=== PATIENT | female | born 2000 | race Caucasian/White ===

== ENCOUNTER 2020-11-06 13:59 | Emergency (ER) | payer BC, OTHER ==
[2020-11-06 14:06] VITALS: TEMP 98.4
--- NOTE | 2020-11-06 14:36 | ED ---
Lower Extremity Injury HPI - General Chief Complaint: Extremity Injury, Lower Stated Complaint: Fall-Poss R leg broken Time Seen by Provider: 11/06/20 14:07 Source: patient Mode of arrival: wheelchair Limitations: no limitations - History of Present Illness Initial Comments: 20-year-old female presenting to emergency Department with chief complaint of a fall and right foot pain. Patient reports occurred about half hour prior to arrival. Patient states she tripped over a baby gate and had an inversion injury of the right ankle. Patient reports most of the pain is located in the mid foot and some mild pain over the right lateral malleolus. Denies any swelling, erythema or ecchymosis in the region. States the pain is exacerbated with any movement and weightbearing. Reports pain is alleviated at rest. Denies sick medication to alleviate the symptoms. Denies any numbness or tingling. States she is not able to move her toes due to pain. Denies any head injury or blood thinners. - Related Data Home Medications Medication Instructions Recorded Confirmed Dextroamphetamine/Amphetamine 20 mg PO BID 11/06/20 11/06/20 [Adderall] metFORMIN HCL 850 mg PO BID 11/06/20 11/06/20 Allergies Allergy/AdvReac Type Severity Reaction Status Date / Time No Known Allergies Allergy Verified 11/06/20 15:47 Review of Systems ROS Statement: Those systems with pertinent positive or pertinent negative responses have been documented in the HPI. ROS Other: All systems not noted in ROS Statement are negative. Past Medical History Past Medical History: No Reported History Past Surgical History: No Surgical Hx Reported General Exam Limitations: no limitations General appearance: alert, in no apparent distress, obese Head exam: Present: atraumatic, normocephalic, normal inspection Eye exam: Present: normal appearance, PERRL, EOMI Pupils: Present: normal accommodation ENT exam: Present: normal exam, normal oropharynx, mucous membranes moist, TM's normal bilaterally, normal external ear exam Neck exam: Present: normal inspection, full ROM. Absent: tenderness Respiratory exam: Present: normal lung sounds bilaterally. Absent: respiratory distress, wheezes, rales Cardiovascular Exam: Present: regular rate, normal rhythm, normal heart sounds. Absent: systolic murmur, diastolic murmur GI/Abdominal exam: Present: soft. Absent: distended, tenderness, guarding Extremities exam: Present: normal inspection, tenderness (Midfoot and lateral malleolus tenderness.), normal capillary refill, other (Palpable DP and PT bilaterally.). Absent: full ROM ( Limited range of motion with plantar and dorsiflexion due to pain.), pedal edema, joint swelling Back exam: Present: normal inspection, full ROM. Absent: tenderness, CVA tenderness (R), CVA tenderness (L) Neurological exam: Present: alert, oriented X3, normal gait Psychiatric exam: Present: normal affect, normal mood Skin exam: Present: warm, dry, intact, normal color Course Vital Signs 11/06/20 11/06/20 14:02 16:12 Temperature 98.4 F Pulse Rate 102 H 89 Respiratory 18 16 Rate Blood Pressure 143/88 136/79 O2 Sat by Pulse 98 99 Oximetry Medical Decision Making - Medical Decision Making 20-year-old female presenting to the emergency department with a chief complaint of foot pain. On physical examination, patient is neurovascularly intact but she does have limited range of motion with plantar dorsiflexion due to pain. This was an inversion injury. X-ray of the ankle and foot are negative for any acute processes. Patient was given analgesia. On Reevaluation, patient reports improvement in symptoms. Patient was given a postop shoe. Dr. Hlal also examined the patient and is in agreement with the treatment plan. She was advised to follow-up with licensing specialist. Rest, ice, compression and elevation. Return parameters discussed the patient was understanding and agreeable. Disposition Clinical Impression: Sprain of right foot, Right foot injury Disposition: HOME SELF-CARE Condition: Stable Instructions (If sedation given, give patient instructions): Foot Sprain (ED) Additional Instructions: Rest, ice, wear Boyd bandage. Follow-up with licensing specialist if symptoms not improved. Take anti-inflammatory medication for pain control. Is patient prescribed a controlled substance at d/c from ED?: No Referrals: Jennifer Marina III, MD [Primary Care Provider] - 1-2 days Time of Disposition: 16:04
--- NOTE | 2020-11-06 14:49 | XR ---
Right foot and right ankle HISTORY: Trauma and pain 3 views of the right foot and 3 views the right ankle Mild soft tissue swelling is noted. Bone mineralization, joint spaces and alignment are maintained. IMPRESSION: No fracture or dislocation.
[2020-11-06] MEDS ORDERED: ACET/COD 300 MG/30 MG STARTER PACK 6 TAB BTL PO STA (14:56)
[2020-11-06 16:18] VITALS: BP 136/79; PULSE 89; RESP 16
== END 2020-11-06 16:19 | disposition home or self-care (01) ==
LOC: EC 13:59 → SUPCPDRO 13:59 → EC 16:19
DX: S93.601A Unspecified sprain of right foot, initial encounter (principal); Z79.84 Long term (current) use of oral hypoglycemic drugs; Z79.899 Other long term (current) drug therapy; W18.09XA Striking against other object with subsequent fall, initial encounter
CPT/HCPCS: 99283

== ENCOUNTER 2021-06-27 18:41 | Outpatient (CLI) | payer OTHER ==
[2021-06-27 19:26] VITALS: BP 141/72; PULSE 107; RESP 16; TEMP 97.3
--- NOTE | 2021-08-10 13:13 | P.MSEPDOC ---
Presenting Problems - Arrival Data Date of Arrival on Unit: 06/27/21 Time of Arrival on Unit: 18:41 Mode of Transport: Ambulatory - Complaint OB-Reason for Admission/Chief Complaint: Decreased Movement Medical History - Information : 1 Para: 0 Term: 0 : 0 Abortions: Spontaneous or Elective: 0 Number of Living Children: 0 - Gestational Age Gestational Age by MAGDALENA (wks/days): 22 Weeks and 0 Days Review of Systems - Review of Systems Constitutional: No problems Breast: No problems ENT: No problems Cardiovascular: No problems Respiratory: No problems Gastrointestinal: No problems Genitourinary: No problems Musculoskeletal: No problems Neurological: No problems Skin: No problems, Rash Vital Signs - Temperature Temperature: 97.3 F Temperature Source: Temporal Artery Scan - Pulse Pulse Oximetery Pulse Rate: 107 Pulse Assessment Method: Pulse Oximetry - Respirations Respiratory Rate: 16 Oxygen Delivery Method: Room Air - Blood Pressure Right Arm Blood Pressure: 141/72 Blood Pressure Mean: 95 Blood Pressure Source: Automatic Cuff - Comment Vital Signs Comment: dr. rivera aware of elevated blood pressure. BP reevaluated and documented. Medical Screen Scoring - Assessment - Baby A Baseline FHR: 140 Physician Notification - Physician Notified Physician Notified Date: 06/27/21 Physician Notified Time: 19:04 Physician: Minal Rivera New Order Received: Yes (d/c home) Maternal Triage Index - Prompt/Priority 3 Prompt Priority 3: Yes Criteria Met for Priority 3: C/O DFM, elevated BP upon arrvial Disposition - Disposition OB Disposition: Discharge to home, Written follow up instructions reviewed Discharge Date: 06/27/21 Discharge Time: 19:17 I agree with the RN Medical Screening Exam: Yes Case reviewed; plan agreed upon as documented in EMR&OBIX.: Yes Comments: Patient was not seen or examined by myself Diagnosis: DECREASED MOVEMENTS, SECOND TRIMESTER, FETUS 1
== END 2021-06-27 19:17 ==
LOC: FBPOP 18:41
PROVIDERS: ATTEND Obstetrics & Gynecology Obstetrics
DX: O36.8120 Decreased fetal movements, second trimester, not applicable or unspecified (principal); Z3A.22 22 weeks gestation of pregnancy
CPT/HCPCS: 99213

== ENCOUNTER 2021-08-22 07:09 | Outpatient (CLI) | payer OTHER ==
[2021-08-22] MEDS ORDERED: ACETAMINOPHEN IV (For NPO) 1,000 MG in EMPTY BAG 1 BAG IVPB STA (07:50)
[2021-08-22] MEDS ORDERED: ONDANSETRON 4 MG/2 ML VIAL IVP STA (07:53)
[2021-08-22] MEDS: LACTATED RINGERS 1,000 ML IV SCH ×2 (08:15→09:16)
[2021-08-22 08:31] LABS: Appearance,Urine Cloudy (Clear); Bacteria,Urine Occasional /hpf; Bilirubin,Urine Negative (Negative); Blood,Urine Negative (Negative); Calcium Oxalate Crystals,Urine Moderate /hpf; Color,Urine Yellow; Glucose,Urine (UA) Negative (Negative); Hyaline Casts,Urine 1 /lpf (0-2); Ketones,Urine Trace (Negative); Leukocyte Esterase,Urine Trace (Negative); Mucus,Urine Many /hpf; Nitrite,Urine Negative (Negative); Protein,Urine Trace (Negative); RBC,Urine 8 /hpf (0-5); Specific Gravity,Urine 1.024 (1.001-1.035); Squamous Epithelial Cell,Urine 7 /hpf (0-4); Urobilinogen,Urine <2.0 mg/dL (<2.0); WBC,Urine 6 /hpf (0-5)
--- NOTE | 2021-08-22 09:43 | US ---
EXAMINATION TYPE: US OB >= 14 wk fetus DATE OF EXAM: 08/22/2021 COMPARISON: None CLINICAL HISTORY: complicationsPatient states she has been measuring large for dates. TECHNIQUE: Transvaginal (TV) and Transabdominal (TA) GESTATIONAL AGE / DATING Physician Established: (30 weeks/0 days) EDC: 10/31/2021 Dates by LMP: LMP unknown Dates by First Scan: No previous here Dates by Current Scan: (32 weeks/2 days) EDC: 10/15/2021 SURVEY IUP: Single PLACENTA: Anterior PREVIA: No Previa BUDDY: 16.3 cm Normal CERVICAL LENGTH (transvaginal: norm> 2.5cm): 4.1 cm (Supplemental transvaginal imaging performed to verify cervical length.) BIOMETRY PRESENTATION: Vertex LIE: Longitudinal BPD: 8.7 cm 35 weeks / 1 days HC: 30.4 cm 33 weeks / 6 days AC: 29.1 cm 33 weeks / 1 days FL: 5.9 cm 30 weeks / 4 days ESTIMATED WEIGHT IN GRAMS: 2014 grams ESTIMATED WEIGHT IN LBS/OZ: 4 lbs. 7 oz. WEIGHT PERCENTAGE BASED ON ESTABLISHED DATES: 97% HC/AC: 1.0 Normal FL/AC: 20.1 Normal HEART RATE: 151 bpm RHYTHM: Normal IUP measuring 32w2d with FHR 151 IMPRESSION: 1. Single intrauterine gestation estimated at 32 weeks 2 days gestation based on current ultrasound m easurements. Cardiac activity measures 151 bpm. 2. Femur length to biparietal diameter is below the mean. Femur length to head circumference is below the mean. Estimated weight is greater than 97th percentile currently measuring 2014 grams
[2021-08-22 10:10] VITALS: BP 135/75; PULSE 114; RESP 18; TEMP 97.3
--- NOTE | 2021-08-31 09:49 | P.MSEPDOC ---
Presenting Problems - Arrival Data Date of Arrival on Unit: 08/22/21 Time of Arrival on Unit: 07:09 Mode of Transport: Ambulatory - Complaint OB-Reason for Admission/Chief Complaint: Pain Comment: 30 weeks ga, n/v, headache, pelvic pain Medical History - Information : 1 Para: 0 Term: 0 : 0 Abortions: Spontaneous or Elective: 0 Number of Living Children: 0 - Gestational Age Gestational Age by MAGDALENA (wks/days): 30 Weeks and 0 Days Review of Systems - Review of Systems Constitutional: No problems Breast: No problems ENT: No problems Cardiovascular: No problems Respiratory: No problems Gastrointestinal: No problems Genitourinary: No problems Musculoskeletal: No problems Neurological: No problems Skin: No problems Vital Signs - Temperature Temperature: 97.3 F Temperature Source: Temporal Artery Scan - Pulse Right Brachial Pulse Rate: 114 Pulse Assessment Method: Automatic Cuff - Respirations Respiratory Rate: 18 Oxygen Delivery Method: Room Air - Blood Pressure Right Arm Blood Pressure: 135/75 Blood Pressure Mean: 95 Blood Pressure Source: Automatic Cuff Medical Screen Scoring - Uterine Contractions Frequency From (mins): 0 - Assessment - Baby A Baseline FHR: 140 Heart Rate - NICHD Category: Category I (Normal) NST: Reactive Physician Notification - Physician Notified Physician Notified Date: 08/22/21 Physician Notified Time: 09:40 Physician: Minal Rivera New Order Received: No - Notification Comment Comment: n/v, visual changes, pelvic pressure, back pain, reactive nst, no contractions, IVF given, ua and covid test obtained, covid negative, zofran and ofirmive given,ultrasound obtained, pt feeling better, instructed to increase oral fluids and given keflex prescription Maternal Triage Index - Maternal Triage Index Presenting for scheduled procedure w/no complaint: No - Stat/Priority 1 Stat Priority 1: No - Urgent/Priority 2 Urgent Priority 2: Yes Provider Notified: Minal Rivera Provider Notified Time: 07:46 Criteria Met for Priority 2: 30 weeks ga, n/v, headache, pelvic pressure Disposition - Disposition OB Disposition: Triage, Discharge to home, Written follow up instructions reviewed Discharge Date: 08/22/21 Discharge Time: 09:50 I agree with the RN Medical Screening Exam: Yes Physician's MSE Comment: Patient was not seen or examined by myself Case reviewed; plan agreed upon as documented in EMR&OBIX.: Yes Diagnosis: DEHYDRATION
== END 2021-08-22 09:50 | disposition home or self-care (01) ==
LOC: FBPOP 07:09
PROVIDERS: ATTEND Obstetrics & Gynecology Obstetrics
DX: O99.283 Endocrine, nutritional and metabolic diseases complicating pregnancy, third trimester (principal); E86.0 Dehydration; Z3A.30 30 weeks gestation of pregnancy
CPT/HCPCS: 59025; 96361; 96365; 96375; 81001; 87635; 76805; G0463; J2405; J0131; 99214

== ENCOUNTER 2021-09-08 10:35 | Outpatient (CLI) | payer OTHER ==
[2021-09-08 11:15] LABS: Appearance,Urine Clear (Clear); Bilirubin,Urine Negative (Negative); Blood,Urine Negative (Negative); Color,Urine Yellow; Glucose,Urine (UA) Negative (Negative); Ketones,Urine Trace (Negative); Leukocyte Esterase,Urine Negative (Negative); Nitrite,Urine Negative (Negative); Protein,Urine Trace (Negative); Specific Gravity,Urine 1.019 (1.001-1.035); Urobilinogen,Urine <2.0 mg/dL (<2.0)
[2021-09-08 11:36] LABS: Creatinine,Urine Random 115.5 mg/dL; Protein/Creatinine Ratio,Urine 0.043
[2021-09-08 11:43] LABS: ALT 19 U/L (4-34); AST 29 U/L (14-36); African American GFR (CKD) >90 (>60 ml/min/1.73 sqM); Blood Urea Nitrogen 6 mg/dL (7-17); LDH 348 U/L (313-618); Non-African American GFR(CKD) >90 (>60 ml/min/1.73 sqM); Uric Acid 3.2 mg/dL (3.7-7.4)
[2021-09-08 11:48] LABS: Basophils % (A) 0 %; Eosinophils # (A) 0.1 k/uL (0-0.7); Eosinophils % (A) 1 %; HCT 37.3 % (34.0-46.0); HGB 12.8 gm/dL (11.4-16.0); Lymphocytes # (A) 2.4 k/uL (1.0-4.8); Lymphocytes % (A) 17 %; MCH 28.2 pg (25.0-35.0); MCHC 34.3 g/dL (31.0-37.0); MCV 82.2 fL (80.0-100.0); Mean Platelet Volume 8.6; Monocytes # (A) 0.5 k/uL (0-1.0); Monocytes % (A) 4 %; Neutrophils % (A) 77 %; Platelet Count 281 k/uL (150-450); Poikilocytosis Slight; RBC 4.53 m/uL (3.80-5.40); RDW 15.3 % (11.5-15.5); WBC 14.4 k/uL (3.8-10.6)
[2021-09-08 13:02] VITALS: BP 129/75; PULSE 109; RESP 17; TEMP 96.6
== END 2021-09-08 12:57 | disposition home or self-care (01) ==
LOC: FBPOP 10:35
PROVIDERS: ATTEND Obstetrics & Gynecology
DX: O13.3 Gestational [pregnancy-induced] hypertension without significant proteinuria, third trimester (principal); Z3A.32 32 weeks gestation of pregnancy
CPT/HCPCS: 59025; 81003; 82565; 82570; 83615; 84156; 84450; 84460; 84520; 84550; 85025

== ENCOUNTER 2021-09-26 14:10 | Inpatient (IN) | payer OTHER ==
[2021-09-26] MEDS: LACTATED RINGERS 1,000 ML IV SCH ×2 (15:15→16:32)
[2021-09-26 15:27] LABS: Appearance,Urine Cloudy (Clear); Bacteria,Urine Rare /hpf; Bilirubin,Urine Negative (Negative); Blood,Urine Negative (Negative); Color,Urine Yellow; Glucose,Urine (UA) 3+ (Negative); Hyaline Casts,Urine 1 /lpf (0-2); Ketones,Urine 1+ (Negative); Leukocyte Esterase,Urine Trace (Negative); Mucus,Urine Many /hpf; Nitrite,Urine Negative (Negative); Protein,Urine 1+ (Negative); RBC,Urine 2 /hpf (0-5); Specific Gravity,Urine 1.025 (1.001-1.035); Squamous Epithelial Cell,Urine 3 /hpf (0-4); Urobilinogen,Urine <2.0 mg/dL (<2.0); WBC,Urine 4 /hpf (0-5)
[2021-09-26 16:42] LABS: Glucose,Whole Blood 119 mg/dL (75-99)
[2021-09-26] MEDS ORDERED: LACTATED RINGERS 1,000 ML IV ONE (16:45)
[2021-09-26] MEDS ORDERED: BETAMET ACET-BETAMETH SOD PHOS 6 MG/ML MDV IM SCH (17:00)
[2021-09-26] MEDS ORDERED: MAGNESIUM SULFATE GM 6 GM in SODIUM CHLORIDE 0.9% 100 ML IVPB ONE (17:00)
[2021-09-26 17:32] LABS: Basophils % (A) 0 %; Eosinophils # (A) 0.1 k/uL (0-0.7); Eosinophils % (A) 1 %; HCT 37.5 % (34.0-46.0); HGB 12.2 gm/dL (11.4-16.0); Hypochromasia Slight; Lymphocytes # (A) 2.5 k/uL (1.0-4.8); Lymphocytes % (A) 16 %; MCH 27.7 pg (25.0-35.0); MCHC 32.7 g/dL (31.0-37.0); MCV 84.9 fL (80.0-100.0); Mean Platelet Volume 10.6; Monocytes # (A) 0.7 k/uL (0-1.0); Monocytes % (A) 5 %; Neutrophils # (A) 11.8 k/uL (1.3-7.7); Neutrophils % (A) 77 %; Platelet Count 251 k/uL (150-450); RBC 4.41 m/uL (3.80-5.40); RDW 15.7 % (11.5-15.5); WBC 15.4 k/uL (3.8-10.6)
--- NOTE | 2021-09-26 17:39 | US ---
EXAMINATION TYPE: US OB limited DATE OF EXAM: 09/26/2021 COMPARISON: NONE CLINICAL HISTORY: pre term labor . For position only EXAM PERFORMED: Transabdominal (TA) GESTATIONAL AGE / DATING Physician Established: (35 weeks/0 days) EDC: 10/31/2021 No growth performed on today?s study per ordering physician SURVEY CERVICAL LENGTH (transabdominal: norm > 3.0cm): 3.4 cm (PRESENTATION: Vertex LIE: Longitudinal HEART RATE: 157 bpm RHYTHM: Normal Tech findings reported to patient's RN, Merle, at exam's end. IMPRESSION: Cervix is closed. There is cephalic presentation.
[2021-09-26] MEDS: MAGNESIUM SULFATE-WATER PMX 20 GM in WATER FOR INJECTION 1 500ML.BAG IV SCH (17:40)
--- NOTE | 2021-09-26 17:41 | P.HPOB ---
History of Present Illness H&P Date: 09/26/21 Chief Complaint: 35-0/7 weeks, labor The patient is a 21-year-old 1 para 0 admitted at 35-0/7 weeks as established by early ultrasound. Her has been complicated by a very recent diagnosis of gestational diabetes found at 34 weeks at which time she also underwent ultrasound for large for gestational age and was found with the fetus at greater than 99th percentile, estimated weight of 3990 g. As a result, a plan has been made for elective primary low-transverse section at approximately 39 weeks of gestation. She presents to labor and delivery today complaining of contractions and possible rupture of membranes. Rupture of membranes has been ruled out. She was found to be ezio fairly regularly every 2-4 minutes and has made appreciable cervical change while on labor and delivery from approximately 2 to 3 cm. IV hydration as failed to slow the contractions and, as a result, she will be admitted for magnesium sulfate tocolysis. Betamethasone is being given currently. Should she continue to labor, antibiotic prophylaxis will be started. Obstetrical history: 1 para 0 with current statistics listed in history present illness. EDC of 10/31/2021 was established by early ultrasound. Laboratory workup demonstrates a blood type of O+ with a negative antibody screen. Rubella status is immune. The remainder of the laboratory workup was within normal limits. Early Glucola was elevated but apparently no follow-up 3 hour glucose tolerance test was performed. Second trimester glucose tolerance test was again elevated with a significantly elevated three-hour glucose tolerance test. Group B strep status has not yet been performed. Gynecologic history: Unremarkable with no history of any infections to include STDs. Review of Systems Review of systems is confined to history of present illness. Past Medical History Past Medical History: No Reported History History of Any Multi-Drug Resistant Organisms: None Reported Past Surgical History: No Surgical Hx Reported Smoking Status: Never smoker Medications and Allergies Home Medications Medication Instructions Recorded Confirmed Type Pnv No.95/Ferrous Fum/Folic AC 1 tablet PO DAILY 06/27/21 09/26/21 History [ Multivitamin Tablet] Famotidine [Pepcid] 10 mg PO DIRECTED 09/08/21 09/26/21 History Allergies Allergy/AdvReac Type Severity Reaction Status Date / Time No Known Allergies Allergy Verified 09/26/21 14:36 Exam Intake and Output 09/26/21 09/26/21 09/26/21 06:59 14:59 22:59 Other: Weight 126.099 kg In general, this is a morbidly obese white female in no acute distress though she is uncomfortable with contractions. Her heart has a regular rhythm and rate without murmur. Her lungs are clear to auscultation bilaterally in all reyes. Her abdomen is obese, nondistended, has normal active bowel sounds, soft, nontender, without any palpable masses aside from uterine fundus. Her extremities without any cyanosis, clubbing, or significant edema and are nontender to palpation bilaterally. Digital cervical examination performed by the nursing staff has most recently demonstrated her cervix to be 3 cm dilated, 70% effaced, with the vertex in presentation at -2 station. Vertex presentation was confirmed by bedside ultrasound. Results Abnormal Lab Results - Last 24 Hours (Table) 09/26/21 09/26/21 Range/Units 15:20 16:39 POC Glucose (mg/dL) 119 H (75-99) mg/dL Urine Appearance Cloudy H (Clear) Urine Protein 1+ H (Negative) Urine Glucose (UA) 3+ H (Negative) Urine Ketones 1+ H (Negative) Ur Leukocyte Esterase Trace H (Negative) Urine Bacteria Rare H (None) /hpf Urine Mucus Many H (None) /hpf Assessment and Plan (1) Gestational diabetes Current Visit: Yes Status: Acute Code(s): O24.419 - GESTATIONAL DIABETES MELLITUS IN , UNSP CONTROL SNOMED Code(s): 81170704 (2) labor Current Visit: Yes Status: Acute Code(s): O60.00 - LABOR WITHOUT DELIVERY, UNSPECIFIED TRIMESTER SNOMED Code(s): 2725592 (3) 35 weeks gestation of Current Visit: Yes Status: Acute Code(s): Z3A.35 - 35 WEEKS GESTATION OF SNOMED Code(s): 04064734 Plan: The patient is admitted for treatment with magnesium sulfate to attempt to stop labor. It Methasone is being given and will be repeated in 12 hours if the patient remains . Should she continue to labor, antibiotic prophylaxis will be added. I will have a discussion with the patient regarding mode of de livery as a previous discussion with her primary engineering mathematician has made a plan for delivery. She will have close maternal surveillance and expectant management will continue to be practiced. We will follow ins and outs carefully. Given her gestational diabetes and possibly pre-existing diabetes, I will additionally consult internal medicine for management of sugars should she remain and stable.
[2021-09-26 19:53] LABS: Glucose,Whole Blood 89 mg/dL (75-99)
--- NOTE | 2021-09-26 21:28 | P.PN ---
Subjective Progress Note Date: 09/26/21 Principal diagnosis: 35-0/7 weeks, gestational diabetes, labor The patient continues to have significantly uncomfortable contractions on a regular basis. She initially had relief with a bolus of magnesium sulfate but has continued to contract to make cervical change. Objective - Vital Signs Vital signs: Intake & Output 09/26/21 09/26/21 09/27/21 06:59 18:59 06:59 Weight 126.099 kg - Exam status remains category 1 with no evidence of decelerations. Contractions continued to be present every 4-8 minutes with significant patient discomfort. Examination by the nursing staff demonstrates her cervix to be 4 centimeters dilated demonstrating appreciable change from earlier check of 2 on initial check and 3 at initiation of magnesium sulfate. - Labs CBC & Chem 7: 09/26/21 15:15 Labs: Abnormal Lab Results - Last 24 Hours (Table) 09/26/21 09/26/21 09/26/21 Range/Units 15:15 15:20 16:39 WBC 15.4 H (3.8-10.6) k/uL RDW 15.7 H (11.5-15.5) % Neutrophils # 11.8 H (1.3-7.7) k/uL POC Glucose (mg/dL) 119 H (75-99) mg/dL Urine Appearance Cloudy H (Clear) Urine Protein 1+ H (Negative) Urine Glucose (UA) 3+ H (Negative) Urine Ketones 1+ H (Negative) Ur Leukocyte Esterase Trace H (Negative) Urine Bacteria Rare H (None) /hpf Urine Mucus Many H (None) /hpf Assessment and Plan (1) Gestational diabetes Current Visit: Yes Status: Acute Code(s): O24.419 - GESTATIONAL DIABETES MELLITUS IN , UNSP CONTROL SNOMED Code(s): 73306455 (2) labor Current Visit: Yes Status: Acute Code(s): O60.00 - LABOR WITHOUT DELIVERY, UNSPECIFIED TRIMESTER SNOMED Code(s): 1004921 (3) 35 weeks gestation of Current Visit: Yes Status: Acute Code(s): Z3A.35 - 35 WEEKS GESTATION OF SNOMED Code(s): 99707751 Plan: The patient is unfortunately breaking through tocolytic therapy. As her estimated weight within the last week was already demonstrated at 3990 g and the plan had been made with her primary financial coach for elective primary low-transverse section, the patient was counseled and has agreed to undergo primary low-transverse section for the reasons as outlined above. She has received 1 dose of betamethasone though only approximately 5-6 hours ago. She has been counseled regarding the issues of potential prematurity, especially in the face of probable poorly controlled diabetes as well as the possibility of transfer to tertiary care institution.
[2021-09-26] MEDS ORDERED: ceFAZolin 3 GM in SODIUM CHLORIDE 0.9% 100 ML IVPB ONE (21:30)
[2021-09-26] MEDS ORDERED: CITRIC ACID-SODIUM CITRATE 15 ML CUP PO ONE (21:30)
[2021-09-26] MEDS ORDERED: BUTORPHANOL 1 MG/ML 1 ML VIAL IV PRN (22:56)
[2021-09-26] MEDS ORDERED: PENICILLIN G POTASSIUM 5,000,000 UNIT in DEXTROSE 5% IN WATER 100 ML IVPB STA ×2 (23:30)
[2021-09-27] MEDS: INSULIN ASPART (NovoLOG) 100 UNIT/ML VIAL SQ SCH ×3 (01:11→17:34)
[2021-09-27] MEDS: BUTORPHANOL 1 MG/ML 1 ML VIAL IV PRN ×3 (01:17→07:04)
[2021-09-27 01:58] LABS: Glucose,Whole Blood 121 mg/dL (75-99)
[2021-09-27] MEDS: MAGNESIUM SULFATE-WATER PMX 20 GM in WATER FOR INJECTION 1 500ML.BAG IV SCH (03:48)
[2021-09-27] MEDS: LACTATED RINGERS 1,000 ML IV SCH ×4 (03:49→19:16)
[2021-09-27] MEDS: PENICILLIN G POTASSIUM 2,500,000 UNIT in DEXTROSE 5% IN WATER 100 ML IVPB SCH ×4 (04:01→07:55)
[2021-09-27] MEDS ORDERED: BETAMET ACET-BETAMETH SOD PHOS 6 MG/ML MDV IM SCH (05:00)
[2021-09-27 08:06] LABS: Glucose,Whole Blood 112 mg/dL (75-99)
[2021-09-27 09:11] LABS: Glucose,Whole Blood 125 mg/dL (75-99)
--- NOTE | 2021-09-27 09:41 | P.PN ---
Progress Note - Text Progress Note Date: 09/27/21 Last evening when the decision was made to proceed with section, emergency surgery was called in the main operating room delaying the start of delivery for this patient. In the interim time of waiting to begin, the patient's contraction pattern significantly spaced out though she did remain uncomfortable and she had contractions. Her cervix was rechecked and she had made no appreciable change. As a result, the decision was made to delay section until either the onset of active labor or 24 hours post steroid's. She did receive a second dose of steroids last night at 0500. She continues to have contractions which have again become a little bit closer and a recheck of her cervix this morning demonstrated her cervix to be 4-5 cm putting her into the active phase of labor. As a result, we will now proceed with elective primary low-transverse section having maximized the time for steroids to affect the post management of the . This has been discussed at length with the patient and her significant other. At this time, we continue to wait for the availability of anesthesia to proceed with the case.
[2021-09-27] MEDS ORDERED: ONDANSETRON 4 MG/2 ML VIAL ONE (10:05)
[2021-09-27] MEDS ORDERED: KETOROLAC 15 MG/ML 1 ML VIAL ONE (10:05)
[2021-09-27] MEDS ORDERED: OXYTOCIN 30 UNITS/500 ML NS BAG IV ONE (10:05)
[2021-09-27] MEDS ORDERED: METOCLOPRAMIDE 5 MG/ML 2 ML VIAL IVP PRN (11:09)
[2021-09-27] MEDS ORDERED: diphenhydrAMINE 50 MG/ML 1 ML VIAL IVP PRN ×2 (11:09)
[2021-09-27] MEDS ORDERED: SIMETHICONE 80 MG CHEWABLE PO PRN (11:09)
[2021-09-27] MEDS ORDERED: ONDANSETRON 4 MG/2 ML VIAL IVP PRN (11:09)
[2021-09-27] MEDS ORDERED: HYDROmorphone 2 MG TAB PO PRN ×2 (11:09)
[2021-09-27] MEDS ORDERED: diphenhydrAMINE 25 MG CAP PO PRN (11:09)
[2021-09-27] MEDS ORDERED: NALOXONE 0.4 MG/ML 1 ML VIAL IV PRN (11:09)
[2021-09-27] MEDS ORDERED: ZOLPIDEM 5 MG TAB PO PRN (11:09)
[2021-09-27] MEDS ORDERED: diphenhydrAMINE 50 MG CAP PO PRN (11:09)
[2021-09-27] MEDS ORDERED: KETOROLAC 30 MG/ML 1 ML VIAL IVP PRN (11:09)
[2021-09-27] MEDS ORDERED: OXYTOCIN 30 UNITS/500 ML NS 30 UNIT in SALINE 1 500ML.BAG IV SCH (11:15)
--- NOTE | 2021-09-27 11:18 | P.OP ---
Date of Procedure: 09/27/21 Preoperative Diagnosis: #1. 35 and one sevenths weeks, labor, failed tocolysis #2. Probable poorly controlled gestational diabetes #3. macrosomia, estimated weight approximate 4000 g #4. Morbid obesity Postoperative Diagnosis: Same Procedure(s) Performed: #1. Elective primary low-transverse section Anesthesia: spinal Surgeon: Kraig Vega Estimated Blood Loss (ml): 725 IV fluids (ml): 1,000 Urine output (ml): 200 Pathology: other (Placenta) Condition: stable Disposition: floor Operative Findings: See previously dictated notes for conditions leading to section. The patient was taken the operating room where she was delivered of a viable 8 lbs. 5 oz. baby girl with Apgars of 8 at 1 minute and 9 at 5 minutes. The placenta was delivered manually, intact, and grossly normal with a grossly normal three- vessel cord. Uterus, tubes, and ovaries were entirely normal to inspection. Description of Procedure: The patient was prepped and draped in usual fashion after spinal anesthesia was Mester by the anesthesiologist. A Pfannenstiel incision was made and extended into the abdominal cavity without difficulty. The bladder peritoneum was elevated, incised, and reflected distally. A 2 cm incision was made in the transverse plane of the lower uterine segment to enter the uterus at which time copious amounts of clear fluid were noted. Incision was extended in both directions using the bandage scissors. The head was encountered deep within the pelvis and was delivered up and through the incision where the nose and mouth were thoroughly suctioned. The remainder of the was delivered onto the field where the was doubly clamped, cut, and the passed resuscitative measures with weight and Apgars as noted above. A segment of cord was doubly clamped, cut, and set aside should cord gases become necessary after collecting cord blood. The placenta was delivered manually and intact as noted above. The uterus was exteriorized and the interior cavity of uterus swept of any remaining placental or membranous fragments. The margins of the incision were grasped with Aggarwal clamps and the incision was noted to have extended slightly on the right side but not to the level of the vessels. The incision was closed in 2 layers with the first layer being a running locking stitch of 0 chromic catgut followed by a running imbricating stitch of 0 chromic catgut, each from margin to margin. The incision was reexamined and thought to be hemostatic. The posterior cul-de-sac was suctioned with a guard followed by laparotomy sponge. The uterus was replaced within the abdominal cavity and the gutters swept of any remaining blood, fluid, or clot. Examination of the incision demonstrated small points of bleeding which were made hemostatic with the Bovie and one larger point of bleeding in the midsection made hemostatic with a [id number] stitch of 0 chromic catgut. After ensuring hemostasis, the parietal peritoneum was reapproximated loosely in the layer of muscles examined and found to be hemostatic. The fascia was closed with 2 running stitches of 0 Vicryl proceeding from the lateral margins to the midpoint. Subcutaneous tissues were irrigated, found to be hemostatic, and reapproximated with a running stitch of 30 plain catgut. Skin was approximated of the running subcuticular stitch of 4-0 Vicryl followed by half-inch Steri-Strips placed with Mastisol. Quantitative blood loss for the case was 724 mL. All sponge, instrument, and needle counts were correct. There were no compilations. The patient tolerated the procedure well and proceeded to the recovery room in stable condition. Both mother and are resting comfortably in recovery at this time.
[2021-09-27] MEDS: ACETAMINOPHEN TAB 500 MG TAB PO SCH ×2 (16:34→22:15)
[2021-09-27] MEDS: IBUPROFEN 600 MG TAB PO SCH (19:16)
[2021-09-27] MEDS: SENNOSIDES-DOCUSATE SODIUM 1 EACH TAB PO SCH (22:52)
[2021-09-28] MEDS: IBUPROFEN 600 MG TAB PO SCH ×5 (05:01→19:13)
[2021-09-28] MEDS: LACTATED RINGERS 1,000 ML IV SCH (05:02)
[2021-09-28 05:15] LABS: Basophils % (A) 0 %; Eosinophils % (A) 0 %; HCT 30.2 % (34.0-46.0); Hypochromasia Slight; Lymphocytes # (A) 2.9 k/uL (1.0-4.8); Lymphocytes % (A) 17 %; MCH 27.4 pg (25.0-35.0); MCHC 32.5 g/dL (31.0-37.0); MCV 84.3 fL (80.0-100.0); Monocytes # (A) 0.9 k/uL (0-1.0); Monocytes % (A) 5 %; Neutrophils # (A) 13.4 k/uL (1.3-7.7); Neutrophils % (A) 76 %; Platelet Count 232 k/uL (150-450); RBC 3.58 m/uL (3.80-5.40); RDW 15.5 % (11.5-15.5); WBC 17.6 k/uL (3.8-10.6)
[2021-09-28 05:22] LABS: HGB 9.8 gm/dL (11.4-16.0)
[2021-09-28] MEDS: ACETAMINOPHEN TAB 500 MG TAB PO SCH ×3 (08:27→16:11)
[2021-09-28] MEDS: SENNOSIDES-DOCUSATE SODIUM 1 EACH TAB PO SCH ×3 (08:28→23:00)
--- NOTE | 2021-09-28 08:56 | P.PN ---
Progress Note - Text Progress Note Date: 09/28/21 (527) Anesthesia Postop day 1 Subjective: Status Post section with Duramorph. Patient seen and examined. Doing well without complaint. VAS 0. No nausea vomiting or pruritis . Afebrile. Gross lower extremity strength intact. Spinal site intact without induration. Without apparent anesthetic complications. Objective: Vital signs reviewed Heart: Regular Rate Lungs: Good chest excursion Abdomen: Appears nondistended Assessment: Status post with Duramorph postop day 1 Plan: Continue current care with your medical management.
--- NOTE | 2021-09-28 12:58 | P.PNOBGPC ---
Subjective - Subjective Patient reports: Reports appetite normal, Reports voiding normally, Reports pain well controlled, Reports ambulating normally : doing well, in NICU (Being treated for issues of prematurity.) Objective - Vital Signs Latest vital signs: Vital Signs Temp Pulse Resp BP Pulse Ox 09/28/21 08:00 98.2 F 88 16 129/80 09/28/21 04:00 98.4 F 90 16 132/74 99 09/28/21 00:00 98.3 F 91 15 110/63 95 09/27/21 20:00 98.3 F 100 16 129/72 98 09/27/21 15:22 99.1 F 101 H 16 127/65 97 09/27/21 13:14 98.7 F 98 16 116/69 100 Intake and Output 09/27/21 09/28/21 09/28/21 22:59 06:59 14:59 Intake Total 960 Output Total 650 500 Balance 310 -500 Intake: Oral 960 Output: Urine 650 500 Uretheral (Bah) 100 Other: Voiding Method Indwelling Catheter Indwelling Catheter # Voids 1 1 - Exam Extremities: Present: normal, edema (1-2+ bilateral lower extremity edema present.) Abdomen: Present: normal appearance, soft. Absent: distention, tenderness Incision: Present: normal, dry, intact Uterus: Present: normal, firm - Labs Labs: Abnormal Lab Results - Last 24 Hours (Table) 09/28/21 Range/Units 05:00 WBC 17.6 H (3.8-10.6) k/uL RBC 3.58 L (3.80-5.40) m/uL Hgb 9.8 L D (11.4-16.0) gm/dL Hct 30.2 L (34.0-46.0) % Neutrophils # 13.4 H (1.3-7.7) k/uL Assessment and Plan (1) Gestational diabetes Current Visit: Yes Status: Acute Code(s): O24.419 - GESTATIONAL DIABETES MELLITUS IN , UNSP CONTROL SNOMED Code(s): 56349783 (2) labor Current Visit: Yes Status: Acute Code(s): O60.00 - LABOR WITHOUT DELIVERY, UNSPECIFIED TRIMESTER SNOMED Code(s): 8758391 (3) 35 weeks gestation of Current Visit: Yes Status: Acute Code(s): Z3A.35 - 35 WEEKS GESTATION OF SNOMED Code(s): 92997525 (4) S/P section Current Visit: Yes Status: Acute Code(s): Z98.891 - HISTORY OF UTERINE SCAR FROM PREVIOUS SURGERY SNOMED Code(s): 096833074 Plan: Continue routine and postoperative care. I have strongly encouraged the patient and we'll in the hallways routinely. We have opted not to check blood sugars in the phase though she will likely need to be screened for diabetes at 6 weeks or shortly thereafter.
[2021-09-29] MEDS: ACETAMINOPHEN TAB 500 MG TAB PO SCH ×4 (03:27→23:27)
[2021-09-29] MEDS: IBUPROFEN 600 MG TAB PO SCH ×3 (04:57→17:43)
[2021-09-29] MEDS: SENNOSIDES-DOCUSATE SODIUM 1 EACH TAB PO SCH (09:18)
--- NOTE | 2021-09-29 15:42 | P.PNOBGPC ---
Subjective - Subjective Principal diagnosis: POD 2 LTCS Interval history: Patient is doing well, no concerns or complaints today. lochia is minimal, pain is well controlled. she is ambulating and voiding without difficulty. Patient reports: Reports appetite normal, Reports voiding normally, Reports pain well controlled, Reports ambulating normally : doing well (in the nursery) Objective - Vital Signs Latest vital signs: Vital Signs Temp Pulse Resp BP Pulse Ox 09/29/21 09:02 97.7 F 100 13 144/79 98 09/28/21 23:58 98.0 F 68 16 124/73 98 09/28/21 23:56 16 09/28/21 16:00 98.3 F 92 16 119/75 97 Intake and Output 09/29/21 09/29/21 09/29/21 06:59 14:59 22:59 Intake Total 500 Balance 500 Intake: Oral 500 Other: Voiding Method Indwelling Catheter Toilet # Voids 2 1 - Exam Extremities: Present: edema Abdomen: Present: normal appearance Incision: Present: normal, intact Uterus: Present: firm Assessment and Plan (1) 35 weeks gestation of Current Visit: Yes Status: Acute Code(s): Z3A.35 - 35 WEEKS GESTATION OF SNOMED Code(s): 78919977 (2) Gestational diabetes Current Visit: Yes Status: Acute Code(s): O24.419 - GESTATIONAL DIABETES MELLITUS IN , UNSP CONTROL SNOMED Code(s): 45107261 (3) Large for gestational age fetus Current Visit: Yes Status: Acute Code(s): AFE7340 - SNOMED Code(s): 434490603 (4) Obesity Current Visit: Yes Status: Acute Code(s): E66.9 - OBESITY, UNSPECIFIED SNOMED Code(s): 509682161 (5) labor Current Visit: Yes Status: Acute Code(s): O60.00 - LABOR WITHOUT DELIVERY, UNSPECIFIED TRIMESTER SNOMED Code(s): 3153342 (6) S/P section Current Visit: Yes Status: Acute Code(s): Z98.891 - HISTORY OF UTERINE SCAR FROM PREVIOUS SURGERY SNOMED Code(s): 910270869 Plan: patient is doing well, plan to continue routine postoperative care.
[2021-09-29 20:56] LABS: Appearance,Urine Cloudy (Clear); Bilirubin,Urine Negative (Negative); Blood,Urine Large (Negative); Color,Urine Light Red; Glucose,Urine (UA) 2+ (Negative); Ketones,Urine Trace (Negative); Leukocyte Esterase,Urine Moderate (Negative); Mucus,Urine Few /hpf; Nitrite,Urine Negative (Negative); Protein,Urine 2+ (Negative); RBC,Urine >182 /hpf (0-5); Specific Gravity,Urine 1.036 (1.001-1.035); Squamous Epithelial Cell,Urine 13 /hpf (0-4); Urobilinogen,Urine <2.0 mg/dL (<2.0); WBC,Urine 82 /hpf (0-5)
[2021-09-30] MEDS: IBUPROFEN 600 MG TAB PO SCH ×5 (04:39→23:06)
[2021-09-30] MEDS: ACETAMINOPHEN TAB 500 MG TAB PO SCH ×4 (04:40→20:10)
[2021-09-30] MEDS: SENNOSIDES-DOCUSATE SODIUM 1 EACH TAB PO SCH ×2 (08:45→20:10)
--- NOTE | 2021-09-30 16:53 | P.PNOBGPC ---
Subjective - Subjective Principal diagnosis: POD 3 LTCS Interval history: patient is doing well postoperatively. She is a billing and voiding without difficulty. She is tolerating a regular diet without nausea or vomiting. She states her pain is well-controlled. Lochia is minimal. Patient reports: Reports appetite normal, Reports voiding normally, Reports pain well controlled, Reports ambulating normally [place]: doing well (in the nursery) Objective - Vital Signs Latest vital signs: Vital Signs Temp Pulse Resp BP Pulse Ox 09/30/21 14:50 98.3 F 94 16 135/85 98 09/30/21 07:00 97.8 F 95 18 122/81 97 09/29/21 23:57 98.6 F 89 16 123/80 99 Intake and Output 09/30/21 09/30/21 09/30/21 06:59 14:59 22:59 Other: # Voids 1 2 - Exam Extremities: Present: normal, edema Abdomen: Present: normal appearance, soft Incision: Present: normal, dry Uterus: Present: normal, firm - Labs Labs: Abnormal Lab Results - Last 24 Hours (Table) 09/29/21 Range/Units 19:40 Urine Appearance Cloudy H (Clear) Ur Specific [place] 1.036 H (1.001-1.035) Urine Protein 2+ H (Negative) Urine Glucose (UA) 2+ H (Negative) Urine Ketones Trace H (Negative) Urine Blood Large H (Negative) Ur Leukocyte Esterase Moderate H (Negative) Urine RBC >182 H (0-5) /hpf Urine WBC 82 H (0-5) /hpf Ur Squamous Epith Cells 13 H (0-4) /hpf Urine Mucus Few H (None) /hpf Assessment and Plan (1) 35 weeks gestation of Current Visit: Yes Status: Acute Code(s): Z3A.35 - 35 WEEKS GESTATION OF SNOMED Code(s): 38266186 (2) Gestational diabetes Current Visit: Yes Status: Acute Code(s): O24.419 - GESTATIONAL DIABETES MELLITUS IN , UNSP CONTROL SNOMED Code(s): 26925679 (3) Large for gestational age fetus Current Visit: Yes Status: Acute Code(s): MVX1734 - SNOMED Code(s): 707433703 (4) Obesity Current Visit: Yes Status: Acute Code(s): E66.9 - OBESITY, UNSPECIFIED SNOMED Code(s): 820185253 (5) labor Current Visit: Yes Status: Acute Code(s): O60.00 - LABOR WITHOUT DELIVERY, UNSPECIFIED TRIMESTER SNOMED Code(s): 6624687 (6) S/P section Current Visit: Yes Status: Acute Code(s): Z98.891 - HISTORY OF UTERINE SCAR FROM PREVIOUS SURGERY SNOMED Code(s): 131359845 Plan: patient continues to do well postoperatively, anticipate discharge home tomorrow.
[2021-10-01] MEDS: ACETAMINOPHEN TAB 500 MG TAB PO SCH (02:17)
[2021-10-01] MEDS: IBUPROFEN 600 MG TAB PO SCH (05:06)
[2021-10-01 08:50] VITALS: BP 126/82; PULSE 81; RESP 16; TEMP 98.4
--- NOTE | 2021-10-01 08:58 | P.DS ---
Providers Date of admission: 09/26/21 20:52 Expected date of discharge: 10/01/21 Attending physician: Minal Rivera Primary care physician: Stated None - Discharge Diagnosis(es) (1) 35 weeks gestation of Current Visit: Yes Status: Acute (2) Gestational diabetes Current Visit: Yes Status: Acute (3) Large for gestational age fetus Current Visit: Yes Status: Acute (4) Obesity Current Visit: Yes Status: Acute (5) labor Current Visit: Yes Status: Acute (6) S/P section Current Visit: Yes Status: Acute Hospital Course: This is a 21-year-old 1 para 0 at 35 and one sevenths weeks, that presented to labor and delivery with complaints of contractions. Patient had a recent diagnosis of gestational diabetes with a significantly abnormal 3 hour gtt. Patient had yet to see diabetes education prior to the visit. For full details on this patient please see the dictated history and physical Patient was initially started on magnesium for total lysis, patient subsequently continued to contract noted to be in active labor, given large for gestational age noted on ultrasound patient had been counseled previously on primary secondary to weight of almost 4000 g. Patient elected primary . Patient underwent primary without difficulty, for full details on the please see the operative report. Patient delivered a viable female weight of 8 lbs. 5 oz., Apgars of 8 and 9 at one and 5 minutes respectively. Patient has done well post operatively. On this postoperative day #4 she is ambulating and voiding without difficulty. She is tolerating a regular diet without nausea or vomiting. She states her pain is well- controlled. remains in the nursery for feeding issues. Patient Condition at Discharge: Good Plan - Discharge Summary New Discharge Prescriptions: No Action Pnv No.95/Ferrous Fum/Folic AC [ Multivitamin Tablet] 1 tablet PO DA AJAY Famotidine [Pepcid] 10 mg PO DIRECTED Discharge Medication List Pnv No.95/Ferrous Fum/Folic AC [ Multivitamin Tablet] 1 tablet PO DAILY 06/27/21 [History] Famotidine [Pepcid] 10 mg PO DIRECTED 09/08/21 [History] Follow up Appointment(s)/Referral(s): Minal Rivera DO [Doctor of Osteopathic Medicine] - 2 Weeks Patient Instructions/Handouts: (DC), (GEN) Discharge Disposition: HOME SELF-CARE
[2021-10-01] MEDS: SENNOSIDES-DOCUSATE SODIUM 1 EACH TAB PO SCH (10:04)
== END 2021-10-01 15:14 | disposition home or self-care (01) | DRG 786 ==
LOC: FBPOP 14:10 → 4FBP 16:50 → OBSVTOIN 20:52
PROVIDERS: ADMIT Obstetrics & Gynecology; ATTEND Obstetrics & Gynecology Obstetrics
PROC: 4A0HXCZ Measurement of Products of Conception, Cardiac Rate, External Approach (ICD-10-PCS; 2021-09-27)
PROC: 10D00Z1 Extraction of Products of Conception, Low, Open Approach (ICD-10-PCS; principal; 2021-09-27 21:17)
DX: O24.429 Gestational diabetes mellitus in childbirth, unspecified control (principal); O60.14X0 Preterm labor third trimester with preterm delivery third trimester, not applicable or unspecified; O36.63X0 Maternal care for excessive fetal growth, third trimester, not applicable or unspecified; E66.01 Morbid (severe) obesity due to excess calories; O99.214 Obesity complicating childbirth; Z37.0 Single live birth; Z3A.35 35 weeks gestation of pregnancy
CPT/HCPCS: 59025; 76815; 81001; 83036; 84112; 85025; 86850; 86900; 86901; 87086; 88307; 96360; 96361; 99214